=== PATIENT | female | born 1975 | race African-American/Black ===

== ENCOUNTER 2016-11-22 13:18 | Emergency (ER) | payer OTHER ==
[2016-11-22 13:50] VITALS: BP 136/83; PULSE 63; TEMP 98; BMI 24.9
[2016-11-22] MEDS ORDERED: IBUPROFEN 400 MG TABLET (FP) PO ONE ×2 (14:42→14:43)
--- NOTE | 2016-11-22 14:46 | PDOC ---
History of Present Illness - General Chief Complaint: Pain Stated Complaint: RT ARM INJURY Time Seen by Provider: 11/22/16 13:57 History Source: Patient - History of Present Illness Occurred: reports: this morning Upper Extremity Pain Location: right: arm Method of Injury: reports: other Past History - Past Medical History Allergies/Adverse Reactions: Allergies Allergy/AdvReac Type Severity Reaction Status Date / Time No Known Allergies Allergy Verified 11/22/16 13:39 Home Medications: Ambulatory Orders NK [No Known Home Medication] 11/22/16 - Surgical History Abdominal Surgery: Yes (HERNIA) - Psycho/Social/Smoking Cessation Hx Suicidal Ideation: No Smoking Status: No Smoking History: Never smoked Number of Cigarettes Smoked Daily: 0 Information on smoking cessation initiated: No Review of Systems - Review of Systems Musculoskeletal: Yes: Joint Pain. No: Joint Swelling Neurological: No: Numbness, Tingling, Weakness *Physical Exam - Vital Signs Last Vital Signs Temp Pulse Resp BP Pulse Ox 98 F 63 18 136/83 100 11/22/16 13:36 11/22/16 13:36 11/22/16 13:36 11/22/16 13:36 11/22/16 13:36 - Physical Exam General Appearance: Yes: Appropriately Dressed. No: Apparent Distress HEENT: positive: Normal Voice Neck: positive: Supple Respiratory/Chest: negative: Respiratory Distress Extremity: positive: Tender (over R deltoid, no swelling, FROMI, NVI). negative : Swelling Integumentary: positive: Dry, Warm Neurologic: positive: Fully Oriented, Alert, Abnormal Cranial NS Medical Decision Making - Medical Decision Making 11/22/16 14:45 41-year-old female, no significant history, here with right arm pain. Patient states pain started this mornin after pulling out a heavy drawer at work. Pain located to right deltoid and radiates to shoulder blade. No numbness, tingling or upper extremity weakness. Has not taking anything for pain. Patient well- appearing and stable in ED with tenderness to palpation over right deltoid. Pain most likely muscular. DC with pain control *DC/Admit/Observation/Transfer Diagnosis at time of Disposition: Arm pain Qualifiers: Laterality: right Qualified Code(s): M79.601 - Pain in right arm - Discharge Dispostion Disposition: HOME Condition at time of disposition: Good - Patient Instructions Printed Discharge Instructions: DI for Arm Pain Additional Instructions: Take motrin as needed for pain
== END 2016-11-22 14:47 | disposition home or self-care (01) ==
LOC: JERFT 13:18
DX: M79.621 Pain in right upper arm (principal); X50.0XXA Overexertion from strenuous movement or load, initial encounter; X50.9XXA Other and unspecified overexertion or strenuous movements or postures, initial encounter; Y93.89 Activity, other specified; Y92.89 Other specified places as the place of occurrence of the external cause; Y99.0 Civilian activity done for income or pay
CPT/HCPCS: 99281-25

== ENCOUNTER 2019-11-18 09:46 | Emergency (ER) | payer OTHER ==
[2019-11-18 10:28] VITALS: BP 116/77; PULSE 71; TEMP 98; BMI 22.3
[2019-11-18] MEDS ORDERED: ACETAMINOPHEN 500 MG TABLET (FP) PO ONE (11:54)
[2019-11-18] MEDS ORDERED: ACETAMINOPHEN 325 MG TABLET (FP) ONE (11:55)
--- NOTE | 2019-11-18 12:33 | PDOC ---
History of Present Illness - General Chief Complaint: Injury Stated Complaint: RT. ANKLE PAIN Time Seen by Provider: 11/18/19 11:37 - History of Present Illness Initial Comments: 11/18/19 12:31 44-year-old female without comorbidities presents for evaluation of right ankle pain. She describes an inversion type injury while coming down a step. She points to the lateral aspect of her right ankle and the medial aspect of her right ankle as the areas of her discomfort. Past History - Past Medical History Allergies/Adverse Reactions: Allergies Allergy/AdvReac Type Severity Reaction Status Date / Time No Known Allergies Allergy Verified 11/18/19 10:26 Home Medications: Ambulatory Orders NK [No Known Home Medication] 11/22/16 - Surgical History Abdominal Surgery: Yes (HERNIA) - Psycho Social/Smoking Cessation Hx Smoking Status: No Smoking History: Never smoked Number of Cigarettes Smoked Daily: 0 Hx Alcohol Use: No Drug/Substance Use Hx: No Review of Systems - Review of Systems Musculoskeletal: Yes: Joint Pain *Physical Exam - Vital Signs Last Vital Signs Temp Pulse Resp BP Pulse Ox 98.0 F 71 16 116/77 100 11/18/19 10:24 11/18/19 10:24 11/18/19 10:24 11/18/19 10:24 11/18/19 10:24 - Physical Exam 11/18/19 12:31 Right ankle skin color and temperature are normal there is minimal swelling laterally. Full range of motion. There is tenderness about the midshaft of the fibula ATFL and area of the deltoid. Medial and lateral malleolus nontender no tenderness about the navicular or base of the fifth metatarsal. No instability or gross sensorimotor deficits full range of motion of the knee thigh and calf are soft and nontender Achilles intact neurovascular intact ED Treatment Course - RADIOLOGY Radiology Studies Ordered: Category Date Time Status ANKLE-RIGHT [RAD] Stat Radiology 11/18/19 11:53 Taken LEG TIB/FIB-RIGHT [RAD] Stat Radiology 11/18/19 11:53 Taken - Medications Given in the ED: ED Medications Discontinued Medications Generic Name Dose Route Start Last Admin Trade Name Freq PRN Reason Stop Dose Admin Acetaminophen 1,000 mg 11/18/19 11:54 11/18/19 11:56 Tylenol - PO 11/18/19 11:55 1,000 mg ONCE ONE Administration Medical Decision Making - Medical Decision Making 11/18/19 12:32 X-rays of the tib-fib and right ankle show no evidence of fracture trauma or destructive process. This is a right ankle sprain weight-bear as tolerated with Aircast and crutches follow-up with orthopedics Tylenol Motrin for pain discussed use of elevation Discharge - Discharge Information Problems reviewed: Yes Clinical Impression/Diagnosis: Ankle sprain Condition: Stable Disposition: HOME - Admission No - Follow up/Referral Referrals: Ger Sam DO [Staff Physician] - - Patient Discharge Instructions Additional Instructions: You may weight-bear as tolerated with use of crutches in the Aircast Tylenol and Motrin as directed for pain. Return to the emergency room for worsening symptoms. And without fail please follow-up with orthopedic surgery in 1 to 2 days for further evaluation and treatment options. - Post Discharge Activity Work/Back to School Note: Back to Work
== END 2019-11-18 12:48 | disposition home or self-care (01) ==
LOC: JERFT 09:46
DX: S93.401A Sprain of unspecified ligament of right ankle, initial encounter (principal); X58.XXXA Exposure to other specified factors, initial encounter; Y93.89 Activity, other specified; Y92.89 Other specified places as the place of occurrence of the external cause
CPT/HCPCS: 73590-TC-RT-FY; 73610-TC-RT-FY; 99281-25

== ENCOUNTER 2021-07-31 19:50 | Emergency (ER) | payer BC ==
[2021-07-31 20:25] VITALS: BP 157/85; PULSE 58; TEMP 99.1; BMI 22.3
== END 2021-07-31 21:49 | disposition home or self-care (01) ==
LOC: FER 19:50
DX: S69.91XA Unspecified injury of right wrist, hand and finger(s), initial encounter (principal); X50.0XXA Overexertion from strenuous movement or load, initial encounter; Y35.91XA Legal intervention, means unspecified, law enforcement official injured, initial encounter
CPT/HCPCS: 73130-TC-RT-FY; 99283-25

== ENCOUNTER 2024-01-16 16:39 | Emergency (ER) | payer BC, OTHER ==
[2024-01-16 17:01] VITALS: BP 127/80; PULSE 58; RESP 18; TEMP 98.7; BMI 23.6
[2024-01-16] MEDS: ACETAMINOPHEN 325 MG TABLET (FP) PO ONE (17:15)
[2024-01-16] MEDS ORDERED: ACETAMINOPHEN 325 MG TABLET (FP) ONE (17:16)
== END 2024-01-16 18:10 | disposition home or self-care (01) ==
LOC: FER 16:39
DX: R51.9 Headache, unspecified (principal); S80.212A Abrasion, left knee, initial encounter; S09.90XA Unspecified injury of head, initial encounter; W01.0XXA Fall on same level from slipping, tripping and stumbling without subsequent striking against object, initial encounter; Y93.02 Activity, running
CPT/HCPCS: 99283-25